=== PATIENT | female | born 1985 | race Caucasian/White ===

== ENCOUNTER → 2017-04-26 | Day surgery (SDC) | payer OTHER ==
[~2017-04-26] VITALS: Ht 162.6 cm; Wt 88.5 kg
[2017-04-26 11:41] LABS: ABSOLUTE BASOPHIL COUNT 0 /CUMM (0.0-0.2); ABSOLUTE EOSINOPHIL COUNT 0 /CUMM (0.0-0.7); ABSOLUTE GRANULOCYTE CT 4.6 /CUMM (1.4-6.5); ABSOLUTE LYMPH COUNT 2.3 /CUMM (1.2-3.4); ABSOLUTE MONOCYTE COUNT 0.4 /CUMM (0.10-0.60); BASOPHIL % 0.3 % (0.0-2.0); EOSINOPHIL % 0.5 % (0-5); GRANULOCYTE % 62.8 % (42.2-75.2); MEAN CORPUSCULAR HGB 29.5 PG (27.0-31.0); MEAN CORPUSCULAR HGB CONC 33.8 G/DL (33.0-37.0); MEAN CORPUSCULAR VOLUME 87.3 FL (81.0-99.0); MEAN PLATELET VOLUME 8.3 FL (7.4-10.4); PLATELET COUNT 343 /CUMM (130-400); RBC DISTRIBUTION WIDTH 12.7 % (11.5-14.5); RED BLOOD CELL CT 4.35 /CUMM (4.20-5.40); WHITE BLOOD CELL COUNT 7.4 /CUMM (4.8-10.8)
--- NOTE | 2017-04-26 16:04 | Operative Report ---
Operative/Inv Procedure Report Surgery Date: 04/26/17 Name of Procedure: Suction dilation and curettage Pre-Operative Diagnosis: Missed Post-Operative Diagnosis: Same Estimated Blood Loss: 50ml to 100ml Surgeon/[employer] Second Operator: JENNIFER ROGER MD Anesthesia: moderate sedation IV Fluids: Lactated Ringer's Urine Output: 50 mL straight cath clear urine at the beginning of the procedure Specimens: POC Complications: None Condition: Stable Operative Indication: 31-year-old, 8 weeks intrauterine by LMP, 6 weeks intrauterine by ultrasound, no heart activity detected( cardiac activity was detected as 6 weeks ultrasound) Operative/Procedure Note Note: The patient was taken to the operating room where moderate sedation was found to be adequate. she was then examined under anesthesia and found to have a 6 week size uterus with normal adnexa. Laminaria was removed. She was then placed in the dorsal lithotomy position and prepared and draped in the usual sterile fashion. A bivalve speculum was then placed in the patient's vagina and the anterior lip of the cervix grasped with the single-tooth tenaculum. The uterus was gently sounded 8 cm, cervix was dilated to accommodate a size 7MM suction curette, the suction curet was gently advanced to the uterine fundus. The suction device was then activated and the curet rotated to clear the uterus of the products of conception. Sharp curette was then performed until a gritty texture was noted. The suction curet was then reintroduced to the clear the uterus of or remaining products of conception. There was minimal bleeding noted and the tenaculum removed with good hemostasis noted. The patient tolerated the procedure well. The patient was taken to the recovery room in stable condition. Findings: Anteverted uterus 6 weeks in size, sound to 8 cm. Small amount of products of conception.
== END ==
LOC: STS 03:08
PROVIDERS: Obstetrics & Gynecology
DX: O02.1 Missed abortion (principal); E66.9 Obesity, unspecified; Z68.32 Body mass index [BMI] 32.0-32.9, adult
CPT/HCPCS: 36415; J0131; J2210; J2250